=== PATIENT | female | born 1980 | race Caucasian/White ===

== ENCOUNTER → 2024-01-11 13:50 | Outpatient (REF) | payer BC, SELFPAY | LOC: HWEVLT 13:50 | PROVIDERS: ATTENDING PHYSICIAN Radiology Diagnostic Radiology | DX: I83.893 Varicose veins of bilateral lower extremities with other complications (principal) | CPT/HCPCS: 93970 ==

== ENCOUNTER → 2025-02-13 10:00 | Outpatient (REF) | payer BC, SELFPAY | LOC: HWRAD 10:00 | PROVIDERS: ATTENDING PHYSICIAN Obstetrics & Gynecology; FAMILY PHYSICIAN Nurse Practitioner Family | DX: N92.0 Excessive and frequent menstruation with regular cycle (principal) | CPT/HCPCS: 76830; 76856 ==